=== PATIENT | female | born 1995 | race Caucasian/White ===

== ENCOUNTER 2018-07-02 20:15 | Emergency (ER) | END 2018-07-03 00:35 | disposition home or self-care (01) ==

== ENCOUNTER 2018-07-06 10:05 | Emergency (ER) | END 2018-07-06 11:31 | disposition home or self-care (01) ==

== ENCOUNTER 2018-09-22 21:37 | Emergency (ER) | END 2018-09-22 22:52 | disposition home or self-care (01) ==